=== PATIENT | male | born 1935 | race Caucasian/White ===

== ENCOUNTER 2022-08-04 10:45 | Outpatient (CLI) | payer MEDICARE ==
[2022-08-04 11:53] LABS: Hemoglobin 12.9 g/dL (13.5-17.5); Mean Corpuscular HGB CONC 32.4 g/dL (32.0-36.0); Mean Corpuscular Hemoglobin 29.5 pg (27.0-33.0); Mean Corpuscular Volume 90.9 fl (81.2-95.1); Platelet Count 201 10x3/uL (150-450); RBC Distribution Width 13.5 % (11.5-14.5); Red Blood Cell (RBC) Count 4.38 10x6/uL (4.32-5.72); White Blood Cell (WBC) Count 6.5 10x3/uL (3.5-10.5)
[2022-08-04 12:12] LABS: Anion Gap 12 mmol/L (10-20); BUN (Urea Nitrogen) 15 mg/dL (8.4-25.7); Calc. Creatinine Clearance 0 mL/min (70-130); Calcium 8.4 mg/dL (7.8-10.44); Carbon Dioxide 26 mmol/L (23-31); Chloride 106 mmol/L (98-107); Estimated GFR 83; Glucose 85 mg/dL (83-110); Potassium 4.7 mmol/L (3.5-5.1); Sodium 139 mmol/L (136-145)
[2022-08-04 12:16] LABS: PTT 25.4 sec (22.0-33.0); Prothrombin Time 10.6 sec (9.5-12.1)
== END 2022-08-04 10:46 | disposition home or self-care (01) ==
LOC: LABBT 10:45
PROVIDERS: ATTEND Urology
DX: Z01.818 Encounter for other preprocedural examination (principal); R33.8 Other retention of urine; N40.1 Benign prostatic hyperplasia with lower urinary tract symptoms; I25.10 Atherosclerotic heart disease of native coronary artery without angina pectoris; R97.20 Elevated prostate specific antigen [PSA]
CPT/HCPCS: 80048; 85027; 85610; 85730; 87086; 93005; 93010

== ENCOUNTER 2022-08-14 08:34 | Day surgery (SDC) | payer MEDICARE ==
[2022-08-13 08:52] VITALS: BMI 25.2
[2022-08-14] MEDS ORDERED: Levofloxacin 500 mg/D5W 100 ml Premix Bag ONE (14:46)
[2022-08-14] MEDS ORDERED: KETAMINE 100 MG/ML (5ML VIAL) ONE (14:47)
[2022-08-14] MEDS ORDERED: fentaNYL 50 mcg/mL 1 mL Vial ONE (14:47)
[2022-08-14] MEDS ORDERED: Midazolam HCl 2 mg/2 ml Vial ONE (14:47)
[2022-08-14] MEDS ORDERED: PROPOFOL 200 MG/20 ML VIAL ONE (14:57)
== END 2022-08-14 17:06 | disposition home or self-care (01) ==
LOC: SDC 08:34
PROVIDERS: ATTEND Urology
PROC: 0T7D8DZ Dilation of Urethra with Intraluminal Device, Via Natural or Artificial Opening Endoscopic (ICD-10-PCS; principal; 2022-08-14)
DX: N40.1 Benign prostatic hyperplasia with lower urinary tract symptoms (principal); N13.8 Other obstructive and reflux uropathy; R33.8 Other retention of urine; I25.10 Atherosclerotic heart disease of native coronary artery without angina pectoris; I10 Essential (primary) hypertension; E78.00 Pure hypercholesterolemia, unspecified; Z87.891 Personal history of nicotine dependence; Z79.2 Long term (current) use of antibiotics; Z79.82 Long term (current) use of aspirin; Z79.899 Other long term (current) drug therapy; Z88.1 Allergy status to other antibiotic agents; Z88.6 Allergy status to analgesic agent
CPT/HCPCS: C9740; J3010; L8699 ×2; J1956; J2250; J2704